=== PATIENT | female | born 1945 | race Caucasian/White ===

== ENCOUNTER → 2016-12-11 | Outpatient (CLI) | payer OTHER ==
[~2016-12-11] MED LIST: BACTRIM DS TABL1 TA2 PO; LIPITOR20 MG; SYNTHROID PO; ZOCOR20 MG
--- NOTE | ~2016-12-11 | MY29 ---
[facility] A Service of [facility] & [facility] RADIOLOGY TEXT RESULTS PATIENT: JOEY GUTIERREZ LOCATION: [facility] : 45 UNIT #: [id number] AGE: [address]: Bettie Edwards APRN SEX: F ORDER DR: [id number] [facility] [address] [place], [place] [address] [id number] O MR#: [id number] Acc #: [id number] NAME: JOEY GUTIERREZ. : 1945 SEX: F STUDY DATE/TIME: 12/11/2016 8:14 UNIT: [facility] ROOM: STUDY DESCRIPTION: [facility] SCREENING W/ CAD BILAT Attending Physician: Bettie Edwards A.P.R.N. Referring Physician: Bettie Edwards A.P.R.N. Ordering Physician: Bettie Edwards A.P.R.N. Primary Care Physician: Bettie Edwards A.P.R.N. MEDICAL IMAGING REPORT This report is preliminary unless electronic signature is present EXAM Digital screening mammogram 12/11/2016 HISTORY 71-year-old woman no risk elevation. Annual screen. COMPARISON Mammograms date to 07/10/2005 with most recent 06/08/2015. FINDINGS Digital imaging of each breast was completed utilizing screening protocol. Review includes FDA-approved CAD device. Breast parenchyma is predominantly fatty replaced. Subareolar opacities remain in each breast slightly dominant and stable on the left. There is no interval occurring mass. There are no suspicious microcalcifications and no architectural distortion. IMPRESSION Negative mammogram. Annual screening recommended. Patients over the age of 40 are entered into a reminder system with target due date for the next mammogram. A result letter will also be sent to the patient. BIRADS 1 Dictated by... Stone Mccormack M.D. THIS IS AN ELECTRONICALLY VERIFIED REPORT Stone Mccormack M.D. at 12/11/2016 12:26 PM ROSALIOB/gladis [facility] A Service of [facility] & [facility] RADIOLOGY TEXT RESULTS PATIENT: JOEY GUTIERREZ LOCATION: [facility] : 45 UNIT #: [id number] AGE: [address]: Bettie Edwards APRN SEX: F ORDER DR: TD: 12/11/2016 10:24 JOB #: [id number] MEDICAL IMAGING REPORT Page 1 of 1 COPY
== END | disposition home or self-care (01) ==
LOC: CWCC 07:26
DX: Z12.31 Encounter for screening mammogram for malignant neoplasm of breast (principal)
CPT/HCPCS: G0202